=== PATIENT | female | born 2000 | race Caucasian/White ===

== ENCOUNTER 2023-09-03 00:27 | Emergency (ER) | payer MEDICAID ==
[2023-09-03] MEDS ORDERED: Pantoprazole 40 MG VIAL ONE (02:31)
[2023-09-03] MEDS ORDERED: Ondansetron PF 4 MG/2 ML Vial ONE (02:31)
[2023-09-03 03:03] LABS: ALT (SGPT) 18 U/L (8-55); AST (SGOT) 20 U/L (5-34); Albumin 2.8 g/dL (3.5-5.0); Alkaline Phosphatase 100 U/L (40-110); Anion Gap 13 mmol/L (10-20); BUN (Urea Nitrogen) 5 mg/dL (7.0-18.7); Bilirubin, Total 0.4 mg/dL (0.2-1.2); Calc. Creatinine Clearance 0 mL/min (70-130); Calcium 8.9 mg/dL (7.8-10.44); Carbon Dioxide 20 mmol/L (22-29); Chloride 105 mmol/L (98-107); Estimated GFR 126; Globulin 3.8 g/dL (2.4-3.5); Glucose 86 mg/dL (70-105); Lipase 59 U/L (8-78); Potassium 3.4 mmol/L (3.5-5.1); Protein, Total 6.6 g/dL (6.0-8.3); Sodium 135 mmol/L (136-145)
[2023-09-03 03:04] LABS: #Basophils 0.03 10x3/uL (0.0-0.2); #Monocytes 0.72 10x3/uL (0.0-1.1); #Neutrophils 4.87 10x3/uL (1.5-8.4); %Basophils 0.4 % (0.0-2.0); %Eosinophils 2.4 % (0.0-6.0); %Lymphocytes 29.7 % (18.0-47.0); %Monocytes 8.6 % (0.0-10.0); %Neutrophils 58.2 % (40.0-75.0); Hematocrit 28.7 % (34.9-44.5); Mean Corpuscular HGB CONC 34.8 g/dL (32.0-36.0); Mean Corpuscular Hemoglobin 30.6 pg (27.0-33.0); Mean Corpuscular Volume 87.8 fl (81.6-98.3); Mean Platelet Volume 10.9 fl (7.4-10.4); Platelet Count 273 10x3/uL (150-450); RBC Distribution Width 12.4 % (11.5-14.5); Red Blood Cell (RBC) Count 3.27 10x6/uL (3.90-5.03); White Blood Cell (WBC) Count 8.4 10x3/uL (3.5-10.5)
== END 2023-09-03 04:07 | disposition home or self-care (01) ==
LOC: CSHERS 00:27
DX: O21.0 Mild hyperemesis gravidarum (principal); O99.283 Endocrine, nutritional and metabolic diseases complicating pregnancy, third trimester; E86.0 Dehydration; Z3A.32 32 weeks gestation of pregnancy; Z87.891 Personal history of nicotine dependence
CPT/HCPCS: 80053; 83690; 85025; 96361; 96374; 96375; C9113; J2405